=== PATIENT | male | born 1990 | race Caucasian/White ===

== ENCOUNTER 2022-08-08 09:17 | Outpatient (CLI) | payer OTHER, SELFPAY ==
--- NOTE | 2022-08-10 09:11 | SLEEP ---
Paper documentation exists on this patient due to [email or web address] System downtime on 08/09/22 from to [[id number]] .
--- NOTE | 2022-08-15 17:41 | WPDHOMESLEEP ---
Sleep Study - Home Unattended Date of Study: 08/08/22 Ordering Provider: Al Mike APRN Interpreting Provider: Stefani Kay, DO Home Sleep Study Type: Watch PAT Height: 1.78 m Weight: 158.757 kg Body Mass Index: 50.2 Neck Circumference (inches): 17.75 [place]: 15 Reason for Sleep Study Witnessed apneas, daytime hypersomnia Sleep History The patient is a 32-year-old male with anxiety, depression, bipolar type 1, panic disorder, insomnia and history of tobacco use that had a sleep study ordered by his primary care for evaluation of sleep apnea. 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 He denies awakening from sleep short of breath. He denies awakening at night with heartburn, belching or cough. He constantly snores and is constantly loud enough that others complain. He denies having trouble sleeping when he has a cold. He denies waking up gasping for air throughout the night. He frequently has breathing problems at night observed by himself or others. He occasionally sweats excessively at night. He denies having heart palpitations or irregular heartbeats during the night. He occasionally falls asleep during the day but never while driving. He denies cataplexy and hypnagogic / hypnopompic hallucinations. He frequently has trouble at school or work due to sleepiness. He occasionally feels unable to move while waking up or falling asleep. He denies feeling afraid of going to sleep. He denies having nightmares and denies remembering his dreams. He constantly has thoughts racing through his mind. He constantly feels sad, depressed and anxious. He rarely has muscular tension. He rarely notices parts of his body jerk. He denies kicking during the night. He occasionally has crawling and aching feelings in his legs but rarely had experiences leg pain during the night. He denies grinding his teeth during sleep and denies awakening with morning jaw pain. He is rarely bothered by pain during the day but never awakened by pain during the night. He occasionally wakes up feeling stiff in the morning. He frequently wakes up with sore or achy muscles. He frequently wakes up with pain in the neck, spine or other joints. He goes to bed at 9:30 p.m. on weekdays and 8:00 p.m. on the weekends. He is able to fall asleep immediately. He wakes up once throughout the night to urinate and is able to fall back asleep within 10 minutes. He wakes up at 5:30 a.m. on weekdays and at 4:45 a.m. on the weekends. He typically gets 8 hours of sleep per night. He does not stay in bed for long after waking up in the morning. He currently lives with his . He denies consuming any caffeinated beverages within 2 hours of bedtime. He denies engaging in physical exercise before bedtime. He will watch television before falling asleep. He will take naps in the afternoon or the evening but they are not refreshing. He drinks 1 caffeinated beverage per day. He drinks 2 alcoholic beverages per week. He quit smoking cigarettes several years ago. He denies recreational drug use. [facility] Past Medical History Medical History Anxiety Cyst removal Depression Insomnia Kidney stone Panic attacks Surgical History Surgical History History of hip surgery History of renal stent Family History Family History Mother , unknown cause of Depression Bipolar 1 disorder Sibling Depression Cancer Sleep apnea Father Hypertension Afib Social History Social History Years smoked: 7 Smoking status: Former smoker Tobacco type: e-cigarettes/vaping Additional smoking assessment comments: Smoked Cigarettes for 5 years prior to vaping for the last 7 years on/off. Alcohol intake: current Alcohol use
[2022-08-15 17:45] VITALS: BMI 50.2
== END 2022-08-10 09:15 | disposition home or self-care (01) ==
LOC: ANHCSM 09:19
PROVIDERS: PCP Nurse Practitioner Family; Visit Provider Nurse Practitioner Family
DX: G47.30 Sleep apnea, unspecified (principal); R40.0 Somnolence; G47.33 Obstructive sleep apnea (adult) (pediatric)
CPT/HCPCS: 95800

== ENCOUNTER 2024-05-26 13:05 | Outpatient (CLI) | payer OTHER, SELFPAY ==
--- OUTSIDE RECORDS SUMMARY | 2024-05-26 14:19 | XMS_ITS | Clinical Summary ---
Author Organization [facility] Address [address] [place] [address] Care Team Providers Care Regulatory Affairs Internship Name Role Phone Cyril Farley MD Primary Care Provider [phone] Allergies Active Allergy Reactions Criticality Noted Date Comments Hydrocodone-Acetaminophen Unknown 03/27/2016 Medications hydrOXYzine 50 MG capsule TAKE 1 TO 2 CAPSULES BY MOUTH THREE TIMES DAILY NEEDED 1 Active sertraline 100 MG tablet Take 200 mg by mouth daily. 1 Active traMADol 50 MG tabletIndications:A cute Pain < 7 Day Supply Indications: Acute Pain < 7 Day Supply 1-2 every 6 hours as needed for pain 20 tablet 1 Active HYDROcodone-acetami nophen 5-325 MG tablet Take 1 tablet by mouth every 6 (six) hours as needed for Pain. Active ondansetron 4 MG disintegrating tablet Take 4 mg by mouth every 8 (eight) hours as needed for Nausea. Active Active Problems Problem Noted Date Diagnosed Date Kidney stone on left side 12/18/2020 Family History Medical History Relation Comments Cancer Father Hypertension Father Relation Status Comments Father Social History Tobacco Use Types Packs/Day Years Used Date Smoking Tobacco: Former Smokeless Tobacco: Former Alcohol Use Standard Drinks/Week Comments Yes 0 (1 standard drink = 0.6 oz pur e alcohol) rarely AUDIT-C Answer Date Recorded Frequency of Alcohol Consumption Never 02/14/2019 Average Number of Drinks Not on file 019 Frequency of Binge Drinking Not on file 01/27 Sex and Gender Information Value Date Recorded Sex Assigned at Not on file Legal Sex Male 8:35 PM CDT Gender Identity Not on file Sexual Orientation Not on file Last Filed Vital Signs Vital Sign Reading Time Taken Comments Blood Pressure 170/98 12/19/2020 1:50 PM CDT Steven se notified Pulse 81 12/19/2020 1:50 PM CDT Temperature 37 C (98.6 F) 12/19/2020 1:50 PM CDT Respiratory Rate 18 12/19/2020 9:15 AM CDT Oxygen Saturation 94% 12/19/2020 1:50 PM CDT Inhaled Oxygen Concentration - - Weight 149.7 kg (330 lb) 12/18/2020 2:27 PM CDT Height 177.8 cm (5' 10 ) 12/18/2020 2:27 PM CDT Body Mass Index 47.35 12/18/2020 2:27 PM CDT Plan of Treatment Health Maintenance Due Date Last Done Comments Annual Physical 1993 Hepatitis C 2008 DTaP, Tdap and Td Vaccines (1 - Tdap) 2009 06/28/1994, 11/06/1991, 1990, Additional history exists Hepatitis B Vaccines (1 of 3 - 19+ 3-dose series) 2009 COVID-19 Vaccine (2023- season) 2023 HPV Vaccines Aged Out No longer eligi ble based on patient's age to complete this topic Meningococcal B Vaccine Aged Out No l onger eligible based on patient's age to complete this topic Meningococcal Vaccine Aged Out No taiwo isra eligible based on patient's age to complete this topic Pneumococcal Vaccine: Pediatrics (0 to 5 Years) and At-Risk Patients (6 to 64 Years) Aged Out No longer eligible based on patient's age to complete this topic RSV Immunizations Under 20 Months Aged Out No longer eligible based on patient's age to complete this topic Medical Devices Implanted Type Area Clinical Trainer Device Identifier Shelf Expiration Date Model / Serial / Lot Stent [employer] Ureteral Filaform 6 Fr X 26cm - [id number] Implanted:Qty: 1 on 12/19/2020 by Junior Arthur DO at [facility] Stent Left: Ureter [employer] 07/31/2023 [id number] / / [id number] Insurance R Care Teams Regulatory Affairs Internship Relationship Specialty Start Date End Date Cyril Farley MD [id number] [place] [phone] PCP - General FAMILY PRACTICE 02/14/19
--- OUTSIDE RECORDS SUMMARY | 2024-05-26 14:19 | XMS_ITS ---
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 Role Phone Cyril RESENDIZ MD Primary Care Provider UnavailLupe Smith Unavailable [phone] Allergies Allergen (clinical drug ingredient) Drug/Non Drug Allergy documented on EMR Reaction Allergy Type Onset Date Status buspirone Buspirone Unknown Drug Allergy 07/16/2023 Active REASON FOR VISIT 2 Month FU, MIPS diagnosis of HTN Medications Medication SIG (Take, Route, Frequency, Duration) Notes Start Date End Date Status cloNIDine HCl ER 0.1 MG 1 tablet every morning and 1 tablet at bedtime Orally see sign for 30 days increase dose 05/26/2024 Active cloNIDine HCl ER 0.1 MG 1 tablet Orally Once a day for 30 days Active LORazepam 1 MG 1/2 tablet Oral twice a day 05/03/2024 Active Lisinopril 20 MG Oral 07/16/2023 Ac tive Trintellix 20 MG 1 tablet Oral Once a day for 30 days Active LORazepam 1 MG 1/2 tablet Oral twice a day As needed 05/26/2024 Active Vraylar 1.5 MG 1 capsule Orally Once a day for 30 days decrease dose, DC 3 mg 05/26/2024 Active Social History Tobacco Use: Social History Observation Description Date Details (start date - stop date) Unknown Sex Assigned At : Social History Observation Description Sex Assigned At Male Tobacco Control (Standard) Question Answer Notes Tobacco use: Uses tobacco in other forms How long has it been since you last smoked? 1-5 years AUDIT-C (Standard) Question Answer Notes Did you have a drink contain ing alcohol in the past year? Yes How often did you have six o r more drinks on one occasion in the past year? Never (0 point) How many drinks did you have on a typical day when you were drinking in the past year? 3 or 4 drinks (1 point) How often did you have a dri nk containing alcohol in the past year? 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 Problem 443608406 Low testosterone (R79.89) Active confirmed Problem Essential hypertension (11989057) Benign essential HTN (I10) Active confirmed Vital Signs Blood pressure systolic 130 mm Hg 05/27/19 25 Blood pressure diastolic 84 mm Hg 025 Heart Rate 97 /min 05/26/2024 Height 70.00 in 05/26/2024 Weight 318 lbs 05/26/2024 BMI 45.62 kg/m2 05/26/2024 Height-cm 177.80 cm 05/26/2024 Weight-kg 144.24 kg 05/26/2024 Encounters Encounter Location Date Provider Diagnosis [facility] [address] [address] 05/26/2024 Lupe Porras Panic attacks F41.0 ; Major depressive disorder, recurrent, moderate F33.1 ; Primary insomnia F51.01 ; Generalized anxiety disorder F41.1 ; Low testosterone R79.89 ; Caffeine dependence F15.20 ; Obstructive sleep apnea (adult) (pediatric) G47.33 ; Benign essential HTN I10 and Encounter for screening for depression Z13.31 Assessments Encounter Date Diagnosis (ICD Code) Assessment Notes Treatment Notes Treatment Clinical Notes Section Notes 05/26/2024 Panic attacks (ICD-10 - F41.0) Generalized Anxiety Disorder Assessment: Patient reports persistent anxiety symptoms, describing them as still pretty bad and worse than depressive symptoms. Anxiety appears to be exacerbating depressive symptoms. Current medication regimen includes Trintellix 20mg, Vraylar 3mg, and as-needed lorazepam. Patient exhibits physical restlessness, which may be a side effect of Vraylar or a manifestation of anxiety. Lorazepam is being used on workdays, sometimes twice daily, raising concerns about potential tolerance and dependence. Plan: - Decrease Vraylar dose to 1.5 mg to assess if it's contributing to restlessness and anxiety - Increase clonidine to 0.1mg PO BID (morning and night) for better anxiety coverage - Continue Trintellix 20mg PO daily - Caution patient about lorazepam use: discuss risks of tolerance, dependence, and rebound anxiety with frequent use; continue to minimize use - Encourage non-pharmacologic al anxiety management techniques - Follow up in 6 weeks or sooner if needed Major Depressive Disorder Assessment: Patient reports mood as a little on the depressed side, but it's not been terrible. Depression appears to be secondary to anxiety symptoms. Current treatment with Trintellix 20mg and Vraylar 3mg. Patient denies suicidal ideation. Plan: - Continue Trintellix 20mg PO daily - Monitor depressive symptoms, especially as Vraylar dose is decreased - Reassess efficacy of current antidepressant regimen at follow-up Hypogonadism Assessment: Patient reports recent testosterone testing revealing low levels (27 ng/dL initially, 26 ng/dL on repeat). Plans to start testosterone replacement therapy are in progress, pending additional tests. Plan: - Await results of additional tests for testosterone replacement therapy - Monitor for initiation of testosterone treatment and any effects on mood or anxiety - Patient to keep provider updated on testosterone treatment progress Caffeine Intake Assessment: Patient reports reduced caffeine consumption from previous monster a day and double shot coffees to current 1-2 coffees per day. Intake varies based on work schedule. Plan: - Encourage continued moderation of caffeine intake - Educate on potential effects of caffeine on anxiety symptoms Obstructive Sleep Apnea Assessment: Patient confirms ongoing use of CPAP therapy for management of obstructive sleep apnea. Plan: - Continue CPAP therapy as prescribed - Monitor for any changes in sleep quality or daytime fatigue Hypertension Assessment: Stable today, currently on lisinopril 20 mg daily Plan: - Continue current management - Reinforce importance of caffeine moderation for blood pressure control - Monitor blood pressure at future visits Follow-up in 4-6 weeks to assess progress and adjust treatment plan as needed 05/26/2024 Major depressive disorder, recurrent, moderate (ICD-10 - F33.1) Generalized Anxiety Disorder Assessment: Patient reports persistent anxiety symptoms, describing them as still pretty bad and worse than depressive symptoms. Anxiety appears to be exacerbating depressive symptoms. Current medication regimen includes Trintellix 20mg, Vraylar 3mg, and as-needed lorazepam. Patient exhibits physical restlessness, which may be a side effect of Vraylar or a manifestation of anxiety. Lorazepam is being used on workdays, sometimes twice daily, raising concerns about potential tolerance and dependence. Plan: - Decrease Vraylar dose to 1.5 mg to assess if it's contributing to restlessness and anxiety - Increase clonidine to 0.1mg PO BID (morning and night) for better anxiety coverage - Continue Trintellix 20mg PO daily - Caution patient about lorazepam use: discuss risks of tolerance, dependence, and rebound anxiety with frequent use; continue to minimize use - Encourage non-pharmacologic al anxiety management techniques - Follow up in 6 weeks or sooner if needed Major Depressive Disorder Assessment: Patient reports mood as a little on the depressed side, but it's not been terrible. Depression appears to be secondary to anxiety symptoms. Current treatment with Trintellix 20mg and Vraylar 3mg. Patient denies suicidal ideation. Plan: - Continue Trintellix 20mg PO daily - Monitor depressive symptoms, especially as Vraylar dose is decreased - Reassess efficacy of current antidepressant regimen at follow-up Hypogonadism Assessment: Patient reports recent testosterone testing revealing low levels (27 ng/dL initially, 26 ng/dL on repeat). Plans to start testosterone replacement therapy are in progress, pending additional tests. Plan: - Await results of additional tests for testosterone replacement therapy - Monitor for initiation of testosterone treatment and any effects on mood or anxiety - Patient to keep provider updated on testosterone treatment progress Caffeine Intake Assessment: Patient reports reduced caffeine consumption from previous monster a day and double shot coffees to current 1-2 coffees per day. Intake varies based on work schedule. Plan: - Encourage continued moderation of caffeine intake - Educate on potential effects of caffeine on anxiety symptoms Obstructive Sleep Apnea Assessment: Patient confirms ongoing use of CPAP therapy for management of obstructive sleep apnea. Plan: - Continue CPAP therapy as prescribed - Monitor for any changes in sleep quality or daytime fatigue Hypertension Assessment: Stable today, currently on lisinopril 20 mg daily Plan: - Continue current management - Reinforce importance of caffeine moderation for blood pressure control - Monitor blood pressure at future visits Follow-up in 4-6 weeks to assess progress and adjust treatment plan as needed 05/26/2024 Primary insomnia (ICD-10 - F51.01) Generalized Anxiety Disorder Assessment: Patient reports persistent anxiety symptoms, describing them as still pretty bad and worse than depressive symptoms. Anxiety appears to be exacerbating depressive symptoms. Current medication regimen includes Trintellix 20mg, Vraylar 3mg, and as-needed lorazepam. Patient exhibits physical restlessness, which may be a side effect of Vraylar or a manifestation of anxiety. Lorazepam is being used on workdays, sometimes twice daily, raising concerns about potential tolerance and dependence. Plan: - Decrease Vraylar dose to 1.5 mg to assess if it's contributing to restlessness and anxiety - Increase clonidine to 0.1mg PO BID (morning and night) for better anxiety coverage - Continue Trintellix 20mg PO daily - Caution patient about lorazepam use: discuss risks of tolerance, dependence, and rebound anxiety with frequent use; continue to minimize use - Encourage non-pharmacologic al anxiety management techniques - Follow up in 6 weeks or sooner if needed Major Depressive Disorder Assessment: Patient reports mood as a little on the depressed side, but it's not been terrible. Depression appears to be secondary to anxiety symptoms. Current treatment with Trintellix 20mg and Vraylar 3mg. Patient denies suicidal ideation. Plan: - Continue Trintellix 20mg PO daily - Monitor depressive symptoms, especially as Vraylar dose is decreased - Reassess efficacy of current antidepressant regimen at follow-up Hypogonadism Assessment: Patient reports recent testosterone testing revealing low levels (27 ng/dL initially, 26 ng/dL on repeat). Plans to start testosterone replacement therapy are in progress, pending additional tests. Plan: - Await results of additional tests for testosterone replacement therapy - Monitor for initiation of testosterone treatment and any effects on mood or anxiety - Patient to keep provider updated on testosterone treatment progress Caffeine Intake Assessment: Patient reports reduced caffeine consumption from previous monster a day and double shot coffees to current 1-2 coffees per day. Intake varies based on work schedule. Plan: - Encourage continued moderation of caffeine intake - Educate on potential effects of caffeine on anxiety symptoms Obstructive Sleep Apnea Assessment: Patient confirms ongoing use of CPAP therapy for management of obstructive sleep apnea. Plan: - Continue CPAP therapy as prescribed - Monitor for any changes in sleep quality or daytime fatigue Hypertension Assessment: Stable today, currently on lisinopril 20 mg daily Plan: - Continue current management - Reinforce importance of caffeine moderation for blood pressure control - Monitor blood pressure at future visits Follow-up in 4-6 weeks to assess progress and adjust treatment plan as needed 05/26/2024 Generalized anxiety disorder (ICD-10 - F41.1) Generalized Anxiety Disorder Assessment: Patient reports persistent anxiety symptoms, describing them as still pretty bad and worse than depressive symptoms. Anxiety appears to be exacerbating depressive symptoms. Current medication regimen includes Trintellix 20mg, Vraylar 3mg, and as-needed lorazepam. Patient exhibits physical restlessness, which may be a side effect of Vraylar or a manifestation of anxiety. Lorazepam is being used on workdays, sometimes twice daily, raising concerns about potential tolerance and dependence. Plan: - Decrease Vraylar dose to 1.5 mg to assess if it's contributing to restlessness and anxiety - Increase clonidine to 0.1mg PO BID (morning and night) for better anxiety coverage - Continue Trintellix 20mg PO daily - Caution patient about lorazepam use: discuss risks of tolerance, dependence, and rebound anxiety with frequent use; continue to minimize use - Encourage non-pharmacologic al anxiety management techniques - Follow up in 6 weeks or sooner if needed Major Depressive Disorder Assessment: Patient reports mood as a little on the depressed side, but it's not been terrible. Depression appears to be secondary to anxiety symptoms. Current treatment with Trintellix 20mg and Vraylar 3mg. Patient denies suicidal ideation. Plan: - Continue Trintellix 20mg PO daily - Monitor depressive symptoms, especially as Vraylar dose is decreased - Reassess efficacy of current antidepressant regimen at follow-up Hypogonadism Assessment: Patient reports recent testosterone testing revealing low levels (27 ng/dL initially, 26 ng/dL on repeat). Plans to start testosterone replacement therapy are in progress, pending additional tests. Plan: - Await results of additional tests for testosterone replacement therapy - Monitor for initiation of testosterone treatment and any effects on mood or anxiety - Patient to keep provider updated on testosterone treatment progress Caffeine Intake Assessment: Patient reports reduced caffeine consumption from previous monster a day and double shot coffees to current 1-2 coffees per day. Intake varies based on work schedule. Plan: - Encourage continued moderation of caffeine intake - Educate on potential effects of caffeine on anxiety symptoms Obstructive Sleep Apnea Assessment: Patient confirms ongoing use of CPAP therapy for management of obstructive sleep apnea. Plan: - Continue CPAP therapy as prescribed - Monitor for any changes in sleep quality or daytime fatigue Hypertension Assessment: Stable today, currently on lisinopril 20 mg daily Plan: - Continue current management - Reinforce importance of caffeine moderation for blood pressure control - Monitor blood pressure at future visits Follow-up in 4-6 weeks to assess progress and adjust treatment plan as needed 05/26/2024 Low testosterone (ICD-10 - R79.89) Generalized Anxiety Disorder Assessment: Patient reports persistent anxiety symptoms, describing them as still pretty bad and worse than depressive symptoms. Anxiety appears to be exacerbating depressive symptoms. Current medication regimen includes Trintellix 20mg, Vraylar 3mg, and as-needed lorazepam. Patient exhibits physical restlessness, which may be a side effect of Vraylar or a manifestation of anxiety. Lorazepam is being used on workdays, sometimes twice daily, raising concerns about potential tolerance and dependence. Plan: - Decrease Vraylar dose to 1.5 mg to assess if it's contributing to restlessness and anxiety - Increase clonidine to 0.1mg PO BID (morning and night) for better anxiety coverage - Continue Trintellix 20mg PO daily - Caution patient about lorazepam use: discuss risks of tolerance, dependence, and rebound anxiety with frequent use; continue to minimize use - Encourage non-pharmacologic al anxiety management techniques - Follow up in 6 weeks or sooner if needed Major Depressive Disorder Assessment: Patient reports mood as a little on the depressed side, but it's not been terrible. Depression appears to be secondary to anxiety symptoms. Current treatment with Trintellix 20mg and Vraylar 3mg. Patient denies suicidal ideation. Plan: - Continue Trintellix 20mg PO daily - Monitor depressive symptoms, especially as Vraylar dose is decreased - Reassess efficacy of current antidepressant regimen at follow-up Hypogonadism Assessment: Patient reports recent testosterone testing revealing low levels (27 ng/dL initially, 26 ng/dL on repeat). Plans to start testosterone replacement therapy are in progress, pending additional tests. Plan: - Await results of additional tests for testosterone replacement therapy - Monitor for initiation of testosterone treatment and any effects on mood or anxiety - Patient to keep provider updated on testosterone treatment progress Caffeine Intake Assessment: Patient reports reduced caffeine consumption from previous monster a day and double shot coffees to current 1-2 coffees per day. Intake varies based on work schedule. Plan: - Encourage continued moderation of caffeine intake - Educate on potential effects of caffeine on anxiety symptoms Obstructive Sleep Apnea Assessment: Patient confirms ongoing use of CPAP therapy for management of obstructive sleep apnea. Plan: - Continue CPAP therapy as prescribed - Monitor for any changes in sleep quality or daytime fatigue Hypertension Assessment: Stable today, currently on lisinopril 20 mg daily Plan: - Continue current management - Reinforce importance of caffeine moderation for blood pressure control - Monitor blood pressure at future visits Follow-up in 4-6 weeks to assess progress and adjust treatment plan as needed 05/26/2024 Caffeine dependence (ICD-10 - F15.20) Generalized Anxiety Disorder Assessment: Patient reports persistent anxiety symptoms, describing them as still pretty bad and worse than depressive symptoms. Anxiety appears to be exacerbating depressive symptoms. Current medication regimen includes Trintellix 20mg, Vraylar 3mg, and as-needed lorazepam. Patient exhibits physical restlessness, which may be a side effect of Vraylar or a manifestation of anxiety. Lorazepam is being used on workdays, sometimes twice daily, raising concerns about potential tolerance and dependence. Plan: - Decrease Vraylar dose to 1.5 mg to assess if it's contributing to restlessness and anxiety - Increase clonidine to 0.1mg PO BID (morning and night) for better anxiety coverage - Continue Trintellix 20mg PO daily - Caution patient about lorazepam use: discuss risks of tolerance, dependence, and rebound anxiety with frequent use; continue to minimize use - Encourage non-pharmacologic al anxiety management techniques - Follow up in 6 weeks or sooner if needed Major Depressive Disorder Assessment: Patient reports mood as a little on the depressed side, but it's not been terrible. Depression appears to be secondary to anxiety symptoms. Current treatment with Trintellix 20mg and Vraylar 3mg. Patient denies suicidal ideation. Plan: - Continue Trintellix 20mg PO daily - Monitor depressive symptoms, especially as Vraylar dose is decreased - Reassess efficacy of current antidepressant regimen at follow-up Hypogonadism Assessment: Patient reports recent testosterone testing revealing low levels (27 ng/dL initially, 26 ng/dL on repeat). Plans to start testosterone replacement therapy are in progress, pending additional tests. Plan: - Await results of additional tests for testosterone replacement therapy - Monitor for initiation of testosterone treatment and any effects on mood or anxiety - Patient to keep provider updated on testosterone treatment progress Caffeine Intake Assessment: Patient reports reduced caffeine consumption from previous monster a day and double shot coffees to current 1-2 coffees per day. Intake varies based on work schedule. Plan: - Encourage continued moderation of caffeine intake - Educate on potential effects of caffeine on anxiety symptoms Obstructive Sleep Apnea Assessment: Patient confirms ongoing use of CPAP therapy for management of obstructive sleep apnea. Plan: - Continue CPAP therapy as prescribed - Monitor for any changes in sleep quality or daytime fatigue Hypertension Assessment: Stable today, currently on lisinopril 20 mg daily Plan: - Continue current management - Reinforce importance of caffeine moderation for blood pressure control - Monitor blood pressure at future visits Follow-up in 4-6 weeks to assess progress and adjust treatment plan as needed 05/26/2024 Obstructive sleep apnea (adult) (pediatric) (ICD-10 - G47.33) Generalized Anxiety Disorder Assessment: Patient reports persistent anxiety symptoms, describing them as still pretty bad and worse than depressive symptoms. Anxiety appears to be exacerbating depressive symptoms. Current medication regimen includes Trintellix 20mg, Vraylar 3mg, and as-needed lorazepam. Patient exhibits physical restlessness, which may be a side effect of Vraylar or a manifestation of anxiety. Lorazepam is being used on workdays, sometimes twice daily, raising concerns about potential tolerance and dependence. Plan: - Decrease Vraylar dose to 1.5 mg to assess if it's contributing to restlessness and anxiety - Increase clonidine to 0.1mg PO BID (morning and night) for better anxiety coverage - Continue Trintellix 20mg PO daily - Caution patient about lorazepam use: discuss risks of tolerance, dependence, and rebound anxiety with frequent use; continue to minimize use - Encourage non-pharmacologic al anxiety management techniques - Follow up in 6 weeks or sooner if needed Major Depressive Disorder Assessment: Patient reports mood as a little on the depressed side, but it's not been terrible. Depression appears to be secondary to anxiety symptoms. Current treatment with Trintellix 20mg and Vraylar 3mg. Patient denies suicidal ideation. Plan: - Continue Trintellix 20mg PO daily - Monitor depressive symptoms, especially as Vraylar dose is decreased - Reassess efficacy of current antidepressant regimen at follow-up Hypogonadism Assessment: Patient reports recent testosterone testing revealing low levels (27 ng/dL initially, 26 ng/dL on repeat). Plans to start testosterone replacement therapy are in progress, pending additional tests. Plan: - Await results of additional tests for testosterone replacement therapy - Monitor for initiation of testosterone treatment and any effects on mood or anxiety - Patient to keep provider updated on testosterone treatment progress Caffeine Intake Assessment: Patient reports reduced caffeine consumption from previous monster a day and double shot coffees to current 1-2 coffees per day. Intake varies based on work schedule. Plan: - Encourage continued moderation of caffeine intake - Educate on potential effects of caffeine on anxiety symptoms Obstructive Sleep Apnea Assessment: Patient confirms ongoing use of CPAP therapy for management of obstructive sleep apnea. Plan: - Continue CPAP therapy as prescribed - Monitor for any changes in sleep quality or daytime fatigue Hypertension Assessment: Stable today, currently on lisinopril 20 mg daily Plan: - Continue current management - Reinforce importance of caffeine moderation for blood pressure control - Monitor blood pressure at future visits Follow-up in 4-6 weeks to assess progress and adjust treatment plan as needed 05/26/2024 Benign essential HTN (ICD-10 - I10) Generalized Anxiety Disorder Assessment: Patient reports persistent anxiety symptoms, describing them as still pretty bad and worse than depressive symptoms. Anxiety appears to be exacerbating depressive symptoms. Current medication regimen includes Trintellix 20mg, Vraylar 3mg, and as-needed lorazepam. Patient exhibits physical restlessness, which may be a side effect of Vraylar or a manifestation of anxiety. Lorazepam is being used on workdays, sometimes twice daily, raising concerns about potential tolerance and dependence. Plan: - Decrease Vraylar dose to 1.5 mg to assess if it's contributing to restlessness and anxiety - Increase clonidine to 0.1mg PO BID (morning and night) for better anxiety coverage - Continue Trintellix 20mg PO daily - Caution patient about lorazepam use: discuss risks of tolerance, dependence, and rebound anxiety with frequent use; continue to minimize use - Encourage non-pharmacologic al anxiety management techniques - Follow up in 6 weeks or sooner if needed Major Depressive Disorder Assessment: Patient reports mood as a little on the depressed side, but it's not been terrible. Depression appears to be secondary to anxiety symptoms. Current treatment with Trintellix 20mg and Vraylar 3mg. Patient denies suicidal ideation. Plan: - Continue Trintellix 20mg PO daily - Monitor depressive symptoms, especially as Vraylar dose is decreased - Reassess efficacy of current antidepressant regimen at follow-up Hypogonadism Assessment: Patient reports recent testosterone testing revealing low levels (27 ng/dL initially, 26 ng/dL on repeat). Plans to start testosterone replacement therapy are in progress, pending additional tests. Plan: - Await results of additional tests for testosterone replacement therapy - Monitor for initiation of testosterone treatment and any effects on mood or anxiety - Patient to keep provider updated on testosterone treatment progress Caffeine Intake Assessment: Patient reports reduced caffeine consumption from previous monster a day and double shot coffees to current 1-2 coffees per day. Intake varies based on work schedule. Plan: - Encourage continued moderation of caffeine intake - Educate on potential effects of caffeine on anxiety symptoms Obstructive Sleep Apnea Assessment: Patient confirms ongoing use of CPAP therapy for management of obstructive sleep apnea. Plan: - Continue CPAP therapy as prescribed - Monitor for any changes in sleep quality or daytime fatigue Hypertension Assessment: Stable today, currently on lisinopril 20 mg daily Plan: - Continue current management - Reinforce importance of caffeine moderation for blood pressure control - Monitor blood pressure at future visits Follow-up in 4-6 weeks to assess progress and adjust treatment plan as needed 05/26/2024 Encounter for screening for depression (ICD-10 - Z13.31) Generalized Anxiety Disorder Assessment: Patient reports persistent anxiety symptoms, describing them as still pretty bad and worse than depressive symptoms. Anxiety appears to be exacerbating depressive symptoms. Current medication regimen includes Trintellix 20mg, Vraylar 3mg, and as-needed lorazepam. Patient exhibits physical restlessness, which may be a side effect of Vraylar or a manifestation of anxiety. Lorazepam is being used on workdays, sometimes twice daily, raising concerns about potential tolerance and dependence. Plan: - Decrease Vraylar dose to 1.5 mg to assess if it's contributing to restlessness and anxiety - Increase clonidine to 0.1mg PO BID (morning and night) for better anxiety coverage - Continue Trintellix 20mg PO daily - Caution patient about lorazepam use: discuss risks of tolerance, dependence, and rebound anxiety with frequent use; continue to minimize use - Encourage non-pharmacologic al anxiety management techniques - Follow up in 6 weeks or sooner if needed Major Depressive Disorder Assessment: Patient reports mood as a little on the depressed side, but it's not been terrible. Depression appears to be secondary to anxiety symptoms. Current treatment with Trintellix 20mg and Vraylar 3mg. Patient denies suicidal ideation. Plan: - Continue Trintellix 20mg PO daily - Monitor depressive symptoms, especially as Vraylar dose is decreased - Reassess efficacy of current antidepressant regimen at follow-up Hypogonadism Assessment: Patient reports recent testosterone testing revealing low levels (27 ng/dL initially, 26 ng/dL on repeat). Plans to start testosterone replacement therapy are in progress, pending additional tests. Plan: - Await results of additional tests for testosterone replacement therapy - Monitor for initiation of testosterone treatment and any effects on mood or anxiety - Patient to keep provider updated on testosterone treatment progress Caffeine Intake Assessment: Patient reports reduced caffeine consumption from previous monster a day and double shot coffees to current 1-2 coffees per day. Intake varies based on work schedule. Plan: - Encourage continued moderation of caffeine intake - Educate on potential effects of caffeine on anxiety symptoms Obstructive Sleep Apnea Assessment: Patient confirms ongoing use of CPAP therapy for management of obstructive sleep apnea. Plan: - Continue CPAP therapy as prescribed - Monitor for any changes in sleep quality or daytime fatigue Hypertension Assessment: Stable today, currently on lisinopril 20 mg daily Plan: - Continue current management - Reinforce importance of caffeine moderation for blood pressure control - Monitor blood pressure at future visits Follow-up in 4-6 weeks to assess progress and adjust treatment plan as needed Plan Of Treatment Medication Medication Name Sig Start Date Stop Date Notes Vraylar 3 mg 1 capsule Oral daily cloNIDine HCl ER 0.1 MG 1 tablet every morning and 1 tablet at bedtime Orally see sign for 30 days 05/26/2024 increase dose cloNIDine HCl ER 0.1 MG 1 tablet every morning and 1 tablet at bedtime Orally see sign 05/26/2024 Trintellix 20 MG 1 tablet Oral Once a day for 30 days LORazepam 1 MG 1/2 tablet Oral twice a day 05/26/2024 Vraylar 1.5 MG 1 capsule Orally Once a day for 30 days 05/26/2024 decrease dose, DC 3 mg Next Appt Details Follow Up: 4 Weeks, Reason: Provider Name:Lupe brown, 06/23/2024 09:00:00 AM, [address], [address], [place], [address], Progress Notes * MELISSA BERMUDEZ ADOB: (34 yo M)Acc No.[id number]:05/26/2024 Patient: MELISSA MIGUEL Provider: Dl Porras :1990 A ge:34 Y S ex:Male Date:05/26/2024 Address:[facility] [address] Pcp:Cyril RESENDIZ MD Subjective: * Chief Complaints: * 2 Month FUMIPS diagnosis of HTN * HPI: D epression Screening: OSCAR-7 (2018 Edition) F eeling nervous, anxious, or on edge M ore than half the days N ot being able to stop or control worrying?More than half the days W orrying too much about different things M ore than hafl the days T rouble relaxing M ore than half the days B eing so restless that it is hard to sit still N early every day B ecoming easily annoyed or irritable S everal days F eeling afraid as if something awful might happen N early every day T otal OSCAR-7 Score 1 5 I f you checked any problems, how difficult have they made it for you to do your work, take care of things at home, or get along with other people? V susanna difficult I nterpretation of Total ( 15 and over) Severe C [place]-Suicide Severity Rating Scale: Suicide Risk (CSRS-screener) i n the past one month Have you wished you were or wished you could go to sleep and not wake up? N o i n the past one month Have you actually had any thoughts of killing yourself? N o H ave you ever done anything, started to do anything, or prepared to do anything to end your life? N o D epression screening: PHQ-9 L ittle interest or pleasure in doing things?Several days F eeling down, depressed, or hopeless S everal days T rouble falling or staying asleep, or sleeping too much S everal days F eeling tired or having little energy N early every day P oor appetite or overeating S everal days F eeling bad about yourself or that you are a failure, or have let yourself or your family down S everal days T rouble concentrating on things, such as reading the newspaper or watching television M ore than half the days M oving or speaking so slowly that other people could have noticed; or the opposite, being so fidgety or restless that you have been moving around a lot more than usual N early every day T houghts that you would be better off or of hurting yourself in some way N ot at all T otal Score 1 3 I nterpretation M oderate Depression Intervention D epression Screening Findings P ositve F ollow-Up for Depression M entnv health treatment assessment, Patient follow-up to return when and if necessary S uicide Risk Assessment Performed 0 05/26/2024 A dditional Evaluation for Depression P sychiatric interview and evaluation N idris of the standardized tool used for adult depression screening: P atient Health Questionnaire (PHQ-9) H istory of Presenting Problem: 34 y/o male, , 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 This note is transcribed using speech recognition software. It is a reflection of a visit with the patient. It might have some inaccuracy, including medication names and transcribing errors, though efforts have been made to correct them. Presents with ongoing anxiety and depression. He reports that his anxiety remains pretty bad and has been worse than his depressive symptoms. The patient describes his mood as a little on the depressed side, but it's not been terrible. He believes that his anxiety, when exacerbated, contributes to his depressive symptoms. Denies suicidal ideations. Sleep is reported as okay. The patient continues to use his CPAP machine as prescribed. Reports fatigue most days. Regarding caffeine intake, he has reduced his consumption from a monster a day to one or 2 coffees a day, typically having one cup from [employer] when working his main job and two [employer] coffees when working his part-time job. The patient reports experiencing restlessness, describing it as always hyped up. He notes that he fidgets a lot, seen bouncing on his feet. Currently taking Trintellix and Vraylar 3 mg for his psychiatric symptoms. He uses lorazepam for severe anxiety, often at work, once or sometimes twice on workdays, but not daily. Reports that recent testosterone tests showed low levels (27 and 26 in two separate tests). He is about to start testosterone treatment and is scheduled for additional tests. Expresses desire to change jobs due to work-related stress but feels constrained by current high salary. Attends therapy with Jeaneth Escoto at [place]. P ast Psychiatric Medications: lithium- vomiting; propanolol-ineffective;buspirone- abdominal pain; depakote, latuda, sertraline, zoloft, effexor, wellbutrin, seroquel, lexapro- helpful first few months then stopped being effective. * ROS: G eneral / Constitutional: Patient denies f atigue, headache, l ightheadedness.? C ardiovascular: Patient denies c hest pain, dizziness, palpitations. ? G astrointestinal: Patient denies n ausea, vomiting, change in bowel habits.? N eurologic: Patient denies c onfusion, tic, tremor. P sychiatric: Patient denies s uicidal thoughts, auditory / visual hallucinations, delusions, psychosis, involuntary movements. P erformance Met: N ormal blood pressure reading documented, follow-up not required ( G8783)Patient not eligible due to active diagnosis of hypertension: Aurelia 9744See HPIPatient not eligible due to active diagnosis of hypertension: Aurelia 9744. * Medical History: * Surgical History: O ther 3 hip surgeries Tonsilectomy/adenoids * Hospitalization/Major Diagno stic Procedure: d enied psych hospitalization hx * Family History: M other: Bipolar Disorder. S ister: Major Depressive Episode. * Social History: T obacco Use: T obacco Control (Standard) T obacco use: U ses tobacco in other forms H ow long has it been since you last smoked??1-5 years D rug/Alcohol: D rugs H ave you used drugs other than those for medical reasons in the past 12 months? N o AUDIT-C (Standard) D id you have a drink containing alcohol in the past year? Y es H ow often did you have six or more drinks on one occasion in the past year? N ever (0 point) H ow many drinks did you have on a typical day when you were drinking in the past year? 3 or 4 drinks (1 point) H ow often did you have a drink containing alcohol in the past year? M onthly or less (1 point) P oints 3 I nterpretation N egative M iscellaneous: S afety issues A re there any firearms in the house? 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 N o A re you your own decision-maker Y es S ocial History: H ousehold M arital Status: M arried N umber of Adults in household: 2 N umber of Children in Household: 0 L evel of Education: [employer] in[employer] * Medications: T akingLisinopril 20 MG Tablet Oral Vraylar 3 mg Capsule 1 capsule Oral daily cloNIDine HCl ER 0.1 MG Tablet Extended Release 12 Hour 1 tablet Orally Once a day Trintellix 20 MG Tablet 1 tablet Oral Once a day LORazepam 1 MG Tablet 1/2 tablet Oral twice a day Medication List reviewed and reconciled with the patientTaking Lisinopril 20 MG Tablet Oral Taking Vraylar 3 mg Capsule 1 capsule Oral daily Taking cloNIDine HCl ER 0.1 MG Tablet Extended Release 12 Hour 1 tablet Orally Once a day Taking Trintellix 20 MG Tablet 1 tablet Oral Once a day Taking LORazepam 1 MG Tablet 1/2 tablet Oral twice a day Medication List reviewed and reconciled with the patient * Allergies: B uspirone: Allergy - Onset Date 07/16/2023no[Allergies Verified] Objective: * Vitals: B P:130/84mm Hg, HR:97/min, Wt:318lbs, Wt-k.24 kg, Ht: 70.00 in, Ht-cm: 177.80 cm, BMI:45.62Index, Body Surface Area: 2.67. * Examination: P sychiatry: Appearance: w ell-groomed, well-nourished. Abnormal body movements: b ouncing leg, fidgety. Affect / mood: a nxious. Attention: n ormal in conversation. Attitude: c ooperative. Homicidal ideation: n one. Suicidal ideation: n one. Memory status: n o impairment noted. Degree of awareness of surroundings: w ithin normal limits.? Delusions: n o. Hallucinations: n o. Insight: g ood. Intellectual functioning: n o impairment noted. Judgement: g ood. Orientation: a wake, alert and oriented x 3. Psychomotor activity: w ithin normal range. Speech / language: c lear and coherent, appropriate pitch/modulation, normal rate, volume, and articulation (RVR), proper grammar used. Thought content: a ppropriate. Thought process: i ntact. Assessment: * Assessment: 1. G eneralized anxiety disorder - F41.1 (Primary) 2 . P anic attacks - F41.0 3 . M ajor depressive disorder, recurrent, moderate - F33.1 4 . P rimary insomnia - F51.01 5 . L ow testosterone - R79.89 6. C affeine dependence - F15.20 7 . O bstructive sleep apnea (adult) (pediatric) - G47.33 8 . B enign essential HTN - I10 9 . E ncounter for screening for depression - Z13.31 Generalized Anxiety Disorder Assessment: Patient reports persistent anxiety symptoms, describing them as still pretty bad and worse than depressive symptoms. Anxiety appears to be exacerbating depressive symptoms. Current medication regimen includes Trintellix 20mg, Vraylar 3mg, and as-needed lorazepam. Patient exhibits physical restlessness, which may be a side effect of Vraylar or a manifestation of anxiety. Lorazepam is being used on workdays, sometimes twice daily, raising concerns about potential tolerance and dependence. Plan: - Decrease Vraylar dose to 1.5 mg to assess if it's contributing to restlessness and anxiety - Increase clonidine to 0.1mg PO BID (morning and night) for better anxiety coverage - Continue Trintellix 20mg PO daily - Caution patient about lorazepam use: discuss risks of tolerance, dependence, and rebound anxiety with frequent use; continue to minimize use - Encourage non-pharmacological anxiety management techniques - Follow up in 6 weeks or sooner if needed Major Depressive Disorder Assessment: Patient reports mood as a little on the depressed side, but it's not been terrible. Depression appears to be secondary to anxiety symptoms. Current treatment with Trintellix 20mg and Vraylar 3mg. Patient denies suicidal ideation. Plan: - Continue Trintellix 20mg PO daily - Monitor depressive symptoms, especially as Vraylar dose is decreased - Reassess efficacy of current antidepressant regimen at follow-up Hypogonadism Assessment: Patient reports recent testosterone testing revealing low levels (27 ng/dL initially, 26 ng/dL on repeat). Plans to start testosterone replacement therapy are in progress, pending additional tests. Plan: - Await results of additional tests for testosterone replacement therapy - Monitor for initiation of testosterone treatment and any effects on mood or anxiety - Patient to keep provider updated on testosterone treatment progress Caffeine Intake Assessment: Patient reports reduced caffeine consumption from previous monster a day and double shot coffees to current 1-2 coffees per day. Intake varies based on work schedule. Plan: - Encourage continued moderation of caffeine intake - Educate on potential effects of caffeine on anxiety symptoms Obstructive Sleep Apnea Assessment: Patient confirms ongoing use of CPAP therapy for management of obstructive sleep apnea. Plan: - Continue CPAP therapy as prescribed - Monitor for any changes in sleep quality or daytime fatigue Hypertension Assessment: Stable today, currently on lisinopril 20 mg daily Plan: - Continue current management - Reinforce importance of caffeine moderation for blood pressure control - Monitor blood pressure at future visits Follow-up in 4-6 weeks to assess progress and adjust treatment plan as needed Plan: * Treatment: 2. P anic attacks Refill LORazepam Tablet, 1 MG, 1/2 tablet, Oral, twice a day As needed, 14, Refills 0. 3. M ajor depressive disorder, recurrent, moderate Refill Trintellix Tablet, 20 MG, 1 tablet, Oral, Once a day, 30 days, 30, Refills 1; S top Vraylar Capsule, 3 mg, 1 capsule, Oral, daily; S tart Vraylar Capsule, 1.5 MG, 1 capsule, Orally, Once a day, 30 days, 30 Capsule, Refills 1, Notes to Pharmacist: decrease dose, DC 3 mg. * Procedure Codes: 9 6127 BEHAV ASSMT W/SCORE & DOCD/STAND [id number] Pt not yoselyn d/t act dig [id number] CLIN DEPRESSION SCREEN [id number] VISIT COMPLEXITY INHERENT TO ONGOING CARE RELATED TO A PATIENT'S SINGLE, SERIOUS CONDITION OR A COMPLEX CONDITION * Preventive Medicine: A ssessment and plan reviewed with patient. Educated on diagnoses and recommended treatment options. Educated on risks/benefits of medications, including reason for medications and potential side effects. Alternatives and expected course without treatment reviewed. Education given regarding compliance with medication and expectations regarding adherence to or inconsistent usage of medication. Educated that it can take weeks to see full therapeutic benefits of psychotropic medications and encouraged to trust the process. Educated on good sleep hygiene and importance of adequate sleep on both mental and overall health and well-being. Patient asked appropriate questions, verbalized understanding, and agreed to the recommended treatment and to continue to be followed. Encouraged to reach out if problems, questions, or concerns arise. Educated on suicide hotlines, resources, and safety should suicidal thoughts occur. * Follow Up: 4 Weeks * Billing Information: * Visit Code: 98828 OFFICE OUTPATIENT VISIT 25 MINUTES DETAILED HISTORY AND EXAM/MODERATE MEDICAL DECISION MAKING. * Procedure Codes: 25659 BEHAV ASSMT W/SCORE & DOCD/STAND INSTRUMENT. G9744 Pt not yoselyn d/t act dig htn. G8431 CLIN DEPRESSION SCREEN DOC. G2211 VISIT COMPLEXITY INHERENT TO ONGOING CARE RELATED TO A PATIENT'S SINGLE, SERIOUS CONDITION OR A COMPLEX CONDITION. * Sign off status: Completed true * Provider: Dl Porras Date: 05/26/2024 Generated for Philippe watkins/Saroj/Charletteitting on: 05/26/2024 02:19 PM CDT History and Physical Notes * HPI (History of Present Illness) Category Sub-Category Detail Notes Category Not es Depression screening PHQ-9 Little inte rest or pleasure in doing things: Several days Feeling down, depressed, or hopeless: Se veral days Trouble falling or staying asleep, or sl eeping too much: Several days Feeling tired or having little energy: N early every day Poor appetite or overeating: Several day s Feeling bad about yourself o r that you are a failure, or have let yourself or your family down: Several days Trouble concentrating on thi ngs, such as reading the newspaper or watching television: More than half the days Moving or speaking so slowly that other people could have noticed; or the opposite, being so fidgety or restless that you have been moving around a lot more than usual: Nearly every day Thoughts that you would be b rosi off or of hurting yourself in some way: Not at all Total Score: 13 Interpretation: Moderate Depression Intervention Depression Screening Findings: P ositve Follow-Up for Depression: [facility] treatment assessment, Patient follow-up to return when and if necessary Suicide Risk Assessment Performed: 05/26 Additional Evaluation for Depression: Ps ychiatric interview and evaluation Name of the standardized too l used for adult depression screening:: Patient Health Questionnaire (PHQ-9) Depression Screening OSCAR-7 (2018 Edition) Feelin g nervous, anxious, or on edge: More than half the days Not being able to stop or control worryi ng: More than half the days Worrying too much about different things : More than hafl the days Trouble relaxing: More than half the day s Being so restless that it is hard to sit still: Nearly every day Becoming easily annoyed or irritable: Se ver days Feeling afraid as if something awful lupe ht happen: Nearly every day Total OSCAR-7 Score: 15 If you checked any problems, how difficult have they made it for you to do your work, take care of things at home, or get along with other people?: Very difficult Interpretation of Total: (15 and over) S srinivas Burke-Suicide Severity Rating Scale Suicide Risk (CSRS-screener) in the past one month Have you wished you were or wished you could go to sleep and not wake up?: No in the past one month Have y ou actually had any thoughts of killing yourself?: No Have you ever done anything, started to do anything, or prepared to do anything to end your life?: No Examination Category Sub-Category Detail Notes Category Not es Psychiatry Appearance: well-groomed, well-nourished Attitude: cooperative Psychomotor activity: within normal rang e Abnormal body movements: bouncing leg, f idgety Attention: normal in conversati on Degree of awareness of surroundings: wit hin normal limits Orientation: awake, alert and alfredo ented x 3 Affect / mood: anxious Speech / language: clear and coherent, appropriate pitch/modulation, normal rate, volume, and articulation (RVR), proper grammar used Insight: good Judgement: good Thought process: intact Thought content: appropriate Suicidal ideation: none Homicidal ideation: none Intellectual functioning: no impairment noted Memory status: no impairment noted Delusions: no Hallucinations: no
--- OUTSIDE RECORDS SUMMARY | 2024-05-26 14:19 | XMS_ITS | Encounter Summary ---
Author Organization [facility] Address [address] [place] [address] Care Team Providers Care Instructor Traffic Safety Name Role Phone Cyril Farley MD Primary Care Provider [phone] Encounter Details Date Type Department Care Team (Late st Contact Info) Description 12/20/2020 Hospital Follow-up Call [facility] [address] [place] [address] Diana Victoria RN Social History Tobacco Use Types Packs/Day Years [...] on file Sexual Orientation Not on file COVID-19 Exposure Response Date Recorded In the last month, have you been in contact with someone who was confirmed or suspected to have Coronavirus / COVID-19? No / Unsure 12/18/2020 2:23 PM CDT documented as of this encounter Functional Status * RETIRED Are you deaf or do you have serious difficulty hearing Answer Date of Assessment Author Status No 12/19/2020 9:20 AM CDT Activ e * RETIRED Are you blind or do you have serious difficulty seeing, even when wearing glasses? Answer Date of Assessment Author Status No 12/19/2020 9:20 AM CDT Activ e * Do you have serious difficulty walking or climbing stairs? Answer Date of Assessment Author Status No 12/19/2020 9:20 AM Randee Conteh RN Ac tive * Do you have difficulty dressing or bathing? Answer Date of Assessment Author Status No 12/19/2020 9:20 AM Randee Conteh RN Ac tive * Because of a physical, mental, or emotional condition, do you have difficulty doing errands alone such as visiting a doctor's office or shopping? Answer Date of Assessment Author Status No 12/19/2020 9:20 AM Randee Conteh RN Ac tive documented as of this encounter Mental Status * Because of a physical, mental, or emotional condition, do you have serious difficulty concentrating, remembering, or making decisions? Answer Entry Date Author Status No 12/19/2020 9:20 AM Randee Conteh RN Ac tive documented in this encounter Plan of Treatment Not on file documented as of this encounter Visit Diagnoses Not on filedocumented in this encounter Care Teams Instructor Traffic Safety Relationship Specialty Start Date End Date Cyril Farley MD [address] [place] [address] PCP - General FAMILY PRACTICE 02/14/19 documented as of this encounter
--- OUTSIDE RECORDS SUMMARY | 2024-05-26 14:20 | XMS_ITS | Encounter Summary ---
Author Organization [facility] Address [address] [place] [address] Care Team Providers Care Enrollment Counselor Name Role Phone Cyril Farley MD Primary Care Provider [phone] Encounter Details Date Type Department Care Team (Late st Contact Info) Description 08/03/2018 Abstract [facility] CONVERSION [address] [place] [address] , Generic Conversion, Social History Tobacco Use Types Packs/Day Years Used Date Smoking Tobacco: Never Assessed Sex and Gender Information Value Date Recorded Sex Assigned at Not on file Legal Sex Male 8:35 PM CDT Gender Identity Not on file Sexual Orientation Not on file documented as of this encounter Plan of Treatment Not on file documented as of this encounter Visit Diagnoses Not on filedocumented in this encounter Additional Health Concerns Infection Onset Date Last Indicated Resolved Time COVID-19 Rule Out 12/18/2020 12/19/2020 12/19/2020 6:25 AM CDT documented as of this encounter Care Teams Enrollment Counselor Relationship Specialty Start Date End Date Cyril Farley MD [address] [place] [id number] PCP - General FAMILY PRACTICE 02/14/19 documented as of this encounter
--- OUTSIDE RECORDS SUMMARY | 2024-05-26 14:20 | XMS_ITS ---
Author Organization [facility] Address [address] [facility] [address] [place] [address] Care Team Providers Care Pocket Closer Name Role Phone MARTÍN GIFFORD, Cyril Primary Care Provider Unavailab Lupe Canales Unavailable [phone] Allergies Allergen (clinical drug ingredient) Drug/Non Drug Allergy documented on EMR Reaction Allergy Type Onset Date Status buspirone Buspirone Unknown Drug Allergy 07/16/2023 Active Results Component Value Reference Range Notes UDT Reviewed date:03/04/2024 11:28:45 AM Interpretation: Performing Lab: Notes/Report: THC N 0 - 50 ng/ml Cocaine N 0 - 300 ng/ml Amphetamine N 0 - 1000 ng/ml Buprenorphine (BUP) N 0 - 10 ng/ml Secobarbital (Bar) N 0 - 300 ng/ml Oxazepam (BZO) N 0 - 300 ng/ml 0-uizjbczqye-7,2-jhvgymnm-6,3-diphenylpyrrolidine (LEANDRO P) N 0 - 300 ng/ml Methamphetamine (MET) N 0 - 1000 ng/ml Methylenedioxymethamphetamine (MDMA) N 0 - 500 ng/ml Morphine (MOP 300/[id number]) N 0 - 300 ng/ml Methadone (MTD) N 0 - 300 ng/ml Phencyclidine (PCP) N 0 - 25 ng/ml Nortriptyline (TCA) N 0 - 1000 ng/ml Oxycodone N 0 - 300 ng/ml x N 0 - 300 ng/ml REASON FOR VISIT Follow-up for medication management Medications Medication SIG (Take, Route, Frequency, Duration) Notes Start Date End Date Status Lisinopril 20 MG Oral 07/16/2023 Ac tive cloNIDine HCl ER 0.1 MG 1 tablet Orally Once a day for 30 days if taken in the AM not on a day you work at first, if too sedating take at bedtime 03/04/2024 Active LORazepam 1 MG 1/2 tablet Oral twice a day As needed dc any existing orders from aryan Mahoney provider. thanks 03/04/2024 Active Vraylar 3 mg 1 capsule Oral daily for 30 days Active Trintellix 20 MG 1 tablet Oral Once a day Active Social History Tobacco Use: Social History [...] less (1 point) Points 3 Interpretation Negative Vital Signs Blood pressure systolic 154 mm Hg 03/04/19 25 Blood pressure diastolic 81 mm Hg 025 Heart Rate 85 /min 03/04/2024 Height 70.00 in 03/04/2024 Weight 323.0 lbs 03/04/2024 BMI 46.34 kg/m2 03/04/2024 Height-cm 177.80 cm 03/04/2024 Weight-kg 146.51 kg 03/04/2024 Encounters Encounter Location Date Provider Diagnosis [facility] [address] [address] 03/04/2024 Lupe Porras Major depressive disorder, recurrent, moderate F33.1 ; Generalized anxiety disorder F41.1 ; Panic attacks F41.0 ; Primary insomnia F51.01 and Obstructive sleep apnea (adult) (pediatric) G47.33 Assessments Encounter Date Diagnosis (ICD Code) Assessment Notes Treatment Notes Treatment Clinical Notes Section Notes 03/04/2024 Major depressive disorder, recurrent, moderate (ICD-10 - F33.1) refill on trintellix not needed at this time Major Depressive Disorder - Some improvement in mood after dose increase of Trintellix to 20 mg - Denies suicial thoughts presently Plan: - Continue Trintellix 20 mg daily - Continue Vraylar 3 mg daily - Continue therapy with Jeaneth Escoto at [place] Generalized Anxiety Disorder - Persistent anxiety and restlessness reported - Denies having panic attacks. Plan: - Start clonidine extended-release 0.1 mg once a day - Monitor for drowsiness, adjust dosing schedule if needed - Continue lorazepam as needed, encourage minimizing use Sleep Apnea - Regular use of CPAP machine reported - No concerns with sleep presently Plan: - Encourage continued compliance with CPAP use Hypertension - Currently on lisinopril 20 mg daily Plan: - Monitor blood pressure, adjust medication if needed Follow-up in one month to assess medication effectiveness, mood, anxiety, and overall well-being 03/04/2024 Generalized anxiety disorder (ICD-10 - F41.1) Major Depressive Disorder - Some improvement in mood after dose increase of Trintellix to 20 mg - Denies suicial thoughts presently Plan: - Continue Trintellix 20 mg daily - Continue Vraylar 3 mg daily - Continue therapy with Jeaneth Escoto at [place] Generalized Anxiety Disorder - Persistent anxiety and restlessness reported - Denies having panic attacks. Plan: - Start clonidine extended-release 0.1 mg once a day - Monitor for drowsiness, adjust dosing schedule if needed - Continue lorazepam as needed, encourage minimizing use Sleep Apnea - Regular use of CPAP machine reported - No concerns with sleep presently Plan: - Encourage continued compliance with CPAP use Hypertension - Currently on lisinopril 20 mg daily Plan: - Monitor blood pressure, adjust medication if needed Follow-up in one month to assess medication effectiveness, mood, anxiety, and overall well-being 03/04/2024 Panic attacks (ICD-10 - F41.0) Major Depressive Disorder - Some improvement in mood after dose increase of Trintellix to 20 mg - Denies suicial thoughts presently Plan: - Continue Trintellix 20 mg daily - Continue Vraylar 3 mg daily - Continue therapy with Jeaneth Escoto at [place] Generalized Anxiety Disorder - Persistent anxiety and restlessness reported - Denies having panic attacks. Plan: - Start clonidine extended-release 0.1 mg once a day - Monitor for drowsiness, adjust dosing schedule if needed - Continue lorazepam as needed, encourage minimizing use Sleep Apnea - Regular use of CPAP machine reported - No concerns with sleep presently Plan: - Encourage continued compliance with CPAP use Hypertension - Currently on lisinopril 20 mg daily Plan: - Monitor blood pressure, adjust medication if needed Follow-up in one month to assess medication effectiveness, mood, anxiety, and overall well-being 03/04/2024 Primary insomnia (ICD-10 - F51.01) Major Depressive Disorder - Some improvement in mood after dose increase of Trintellix to 20 mg - Denies suicial thoughts presently Plan: - Continue Trintellix 20 mg daily - Continue Vraylar 3 mg daily - Continue therapy with Jeaneth Escoto at [place] Generalized Anxiety Disorder - Persistent anxiety and restlessness reported - Denies having panic attacks. Plan: - Start clonidine extended-release 0.1 mg once a day - Monitor for drowsiness, adjust dosing schedule if needed - Continue lorazepam as needed, encourage minimizing use Sleep Apnea - Regular use of CPAP machine reported - No concerns with sleep presently Plan: - Encourage continued compliance with CPAP use Hypertension - Currently on lisinopril 20 mg daily Plan: - Monitor blood pressure, adjust medication if needed Follow-up in one month to assess medication effectiveness, mood, anxiety, and overall well-being 03/04/2024 Obstructive sleep apnea (adult) (pediatric) (ICD-10 - G47.33) Major Depressive Disorder - Some improvement in mood after dose increase of Trintellix to 20 mg - Denies suicial thoughts presently Plan: - Continue Trintellix 20 mg daily - Continue Vraylar 3 mg daily - Continue therapy with Jeaneth Escoto at [place] Generalized Anxiety Disorder - Persistent anxiety and restlessness reported - Denies having panic attacks. Plan: - Start clonidine extended-release 0.1 mg once a day - Monitor for drowsiness, adjust dosing schedule if needed - Continue lorazepam as needed, encourage minimizing use Sleep Apnea - Regular use of CPAP machine reported - No concerns with sleep presently Plan: - Encourage continued compliance with CPAP use Hypertension - Currently on lisinopril 20 mg daily Plan: - Monitor blood pressure, adjust medication if needed Follow-up in one month to assess medication effectiveness, mood, anxiety, and overall well-being 03/04/2024 Other Learning About Depression Screening material was printed Major Depressive Disorder - Some improvement in mood after dose increase of Trintellix to 20 mg - Denies suicial thoughts presently Plan: - Continue Trintellix 20 mg daily - Continue Vraylar 3 mg daily - Continue therapy with Jeaneth Escoto at [place] Generalized Anxiety Disorder - Persistent anxiety and restlessness reported - Denies having panic attacks. Plan: - Start clonidine extended-release 0.1 mg once a day - Monitor for drowsiness, adjust dosing schedule if needed - Continue lorazepam as needed, encourage minimizing use Sleep Apnea - Regular use of CPAP machine reported - No concerns with sleep presently Plan: - Encourage continued compliance with CPAP use Hypertension - Currently on lisinopril 20 mg daily Plan: - Monitor blood pressure, adjust medication if needed Follow-up in one month to assess medication effectiveness, mood, anxiety, and overall well-being Plan Of Treatment Medication Medication Name Sig Start Date Stop Date Notes cloNIDine HCl ER 0.1 MG 1 tablet Orally Once a day for 30 days 03/04/2024 LORazepam 1 MG 1/2 tablet Oral twice a day 03/04/2024 dc any existing orders from aryan Mahoney provider. thanks Vraylar 3 mg 1 capsule Oral daily for 30 days Trintellix 20 MG 1 tablet Oral Once a day Treatment Notes Assessment Notes Major depressive disorder, r ecurrent, moderate refill on trintellix not needed at this time Other Learning About Depre ssion Screening material was printed Next Appt Details Follow Up: 4 Weeks, Reason: Provider Name:Lupe brown, 06/23/2024 09:00:00 AM, [address], [facility] [address], [place], [address], Progress Notes * MELISSA BERMUDEZ ADOB: (33 yo M)Acc No.[id number]:03/04/2024 Patient: Nahid MELISSA LAUREN Provider: Dl Porras :1990 A ge:33 Y S ex:Male Date:03/04/2024 Address:[address] [place], [place] [id number] Pcp:Cyril RESENDIZ MD Subjective: * Chief Complaints: * F ollow-up for medication management * HPI: H istory of Presenting Problem: 33 y/o male, , no children, 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 Last visit increased trintellix to 20 mg daily for ongoing depressive symptoms and anxiety. Currently on trintellix 20 mg daily, vraylar 3 mg daily, and lorazepam 1 mg 1/2 tab bid prn. Reports improvement in mood since increasing Trintellix, but states it's not where I want it. Anxiety remains still pretty strong, maybe a little better. Experiences anxiety-induced depression, describing that anxiety gets me worked up and then I get depressed. No recent panic attacks reported. Endorses feeling restless internally, attributing it to anxiety. Does not feel it is related to his Vraylar. Sleep is described as probably too much, maybe due to the season, with anxiety present when going to bed but overall sleep is okay. Does ot take lorazepam every day. Recalls a previous medication that helped with physical anxiety symptoms but can't remember its name. Uses CPAP for sleep apnea. Appetite okay, eating alright. No suicidal thoughts reported. Attends therapy with Jeaneth Escoto at [place]. This note is transcribed using speech recognition software. It is a reflection of a visit with the patient. It might have some inaccuracy, including medication names and transcribing errors, though efforts have been made to correct them. P ast Psychiatric Medications: lithium- vomiting; propanolol-ineffective;buspirone- abdominal pain; depakote, latuda, sertraline, zoloft, effexor, wellbutrin, seroquel, lexapro- helpful first few months then stopped being effective. D epression Screening: OSCAR-7 (2018 Edition) F eeling nervous, anxious, or on edge?More than half the days, N ot being able to stop or control worrying M ore than half the days, W orrying too much about different things M ore than hafl the days, T rouble relaxing N early every day, B eing so restless that it is hard to sit still N early every day, B ecoming easily annoyed or irritable S everal days, F eeling afraid as if something awful might happen M ore than half the days, T otal OSCAR-7 Score 1 5, I nterpretation of Total ( 15 and over) Severe. C [place]-Suicide Severity Rating Scale: Suicide Risk (CSRS-screener) i n the past one month Have you wished you were or wished you could go to sleep and not wake up? N o, i n the past one month Have you actually had any thoughts of killing yourself? N o, H ave you ever done anything, started to do anything, or prepared to do anything to end your life? N o. D epression screening: PHQ-9 L ittle interest or pleasure in doing things M ore than half the days, F eeling down, depressed, or hopeless S everal days, T rouble falling or staying asleep, or sleeping too much M ore than half the days, F eeling tired or having little energy M ore than half the days, P oor appetite or overeating S everal days,?Feeling bad about yourself or that you are a failure, or have let yourself or your family down Several days, T rouble concentrating on things, such as reading the newspaper or watching television M ore than half the days, M oving or speaking so slowly that other people could have noticed; or the opposite, being so fidgety or restless that you have been moving around a lot more than usual M ore than half the days, T houghts that you would be better off or of hurting yourself in some way N ot at all, T otal Score 1 3, I nterpretation M oderate Depression. I ntervention D epression Screening Findings P ositve, F ollow-Up for Depression M ental health treatment assessment, Patient follow-up to return when and if necessary, S uicide Risk Assessment Performed 0 03/04/2024 , A dditional Evaluation for Depression P sychiatric interview and evaluation, N idris of the standardized tool used for adult depression screening: P atient Health Questionnaire (PHQ-9). P ast Psychiatric Hospitalizations: Previous psychiatric hospitalizations P revious Psychiatric Hospitalization N o. P ast History of Suicidal attempt H ave you ever attempted suicide in the past N o. * ROS: G eneral / Constitutional: Patient denies f atigue, headache, l ightheadedness.? C ardiovascular: Patient denies c hest pain, dizziness, palpitations. ? G astrointestinal: Patient denies n ausea, vomiting, change in bowel habits.? N eurologic: Patient denies c onfusion, tic, tremor. P sychiatric: Patient denies s uicidal thoughts, auditory / visual hallucinations, delusions, psychosis, involuntary movements. S ee HPISee HPIPatient not eligible due to active diagnosis of hypertension: Aurelia [id number]. * Medical History: * Surgical History: O ther 3 hip surgeries Tonsilectomy/adenoids * Hospitalization/Major Diagno stic Procedure: d enied psych hospitalization hx * Family History: F ather: None. M aternal Aunt: None. M aternal Uncle: None. P aternal Aunt: None.?Paternal Uncle: None. M other: Bipolar Disorder. P aternal Grandfather: None. P aternal Grandmother: None. M aternal Grandfather: None. M aternal Grandmother: None. B rother: None. S ister: Anxiety Disorder,Major Depressive Episode,Bipolar Disorder. S on: None.?Daughter: None. * Social History: T obacco Use: T obacco Control (Standard) T obacco use: U ses tobacco in other forms, H ow long has it been since you last smoked? 1 -5 years. D rug/Alcohol: D rugs H ave you used drugs other than those for medical reasons in the past 12 months??No. A KENDALL-C (Standard) D id you have a drink containing alcohol in the past year? Y es, H ow often did you have six or more drinks on one occasion in the past year? N ever (0 point), H ow many drinks did you have on a typical day when you were drinking in the past year? 3 or 4 drinks (1 point), H ow often did you have a drink containing alcohol in the past year? M onthly or less (1 point), P oints 3 , I nterpretation N egative. M iscellaneous: S afety issues A re there any firearms in the house? Y es. A dvance Care Planning?Do you have Power of Salon Professional for Health or Medical? N o, A re you your own decision-maker Y es. S ocial History: H ousehold M arital Status: M arried, N umber of Adults in household: 2 , N umber of Children in Household: 0 , L evel of Education: [employer]. * Medications: T akingLisinopril 20 MG Tablet Oral Vraylar 3 mg Capsule 1 capsule Oral daily , Notes to Pharmacist: dc any existing orders from aryan Mahoney provider. thanksTrintellix 20 MG Tablet 1 tablet Oral Once a day , Notes to Pharmacist: dc any existing orders from aryan Mahoney provider. thanksLORazepam 1 MG Tablet 1/2 tablet Oral twice a day As needed, Notes to Pharmacist: dc any existing orders from aryan Mahoney provider. thanksMedication List reviewed and reconciled with the patientTaking Lisinopril 20 MG Tablet Oral Taking Vraylar 3 mg Capsule 1 capsule Oral daily , Notes to Pharmacist: dc any existing orders from aryan Mahoney provider. thanksTaking Trintellix 20 MG Tablet 1 tablet Oral Once a day , Notes to Pharmacist: dc any existing orders from aryan Mahoney provider. thanksTaking LORazepam 1 MG Tablet 1/2 tablet Oral twice a day As needed, Notes to Pharmacist: dc any existing orders from aryan Mahoney provider. thanksMedication List reviewed and reconciled with the patient * Allergies: B uspirone: Allergy - Onset Date 07/16/2023no[Allergies Verified] Objective: * Vitals: B P:154/81mm Hg, HR:85/min, Wt:323.0lbs, Wt-k.51 kg, Ht: 70.00 in, Ht-cm: 177.80 cm, BMI:46.34Index, Body Surface Area: 2.69. * Examination: P sychiatry: Appearance: a lert, groomed, a ppears well rested. In no acute distress. Abnormal body movements: f idgety. Affect / mood: a nxious. Attention: n ormal in conversation. Attitude: c ooperative, open-minded with collaborative approach. Homicidal ideation: n one. Suicidal ideation: n [...] anxiety disorder - F41.1 (Primary) 2 . M ajor depressive disorder, recurrent, moderate - F33.1 3 . P anic attacks - F41.0 4 . P rimary insomnia - F51.01 5 . O bstructive sleep apnea (adult) (pediatric) - G47.33 Major Depressive Disorder - Some improvement in mood after dose increase of Trintellix to 20 mg - Denies suicial thoughts presently Plan: - Continue Trintellix 20 mg daily - Continue Vraylar 3 mg daily - C ontinue therapy with Jeaneth Escoto at [place] Generalized Anxiety Disorder - Persistent anxiety and restlessness reported - Denies having panic attacks. Plan: - Start clonidine extended-release 0.1 mg once a day - Monitor for drowsiness, adjust dosing schedule if needed - C ontinue lorazepam as needed, encourage minimizing use Sleep Apnea - Regular use of CPAP machine reported - No concerns with sleep presently Plan: - Encourage continued compliance with CPAP use Hypertension - Currently on lisinopril 20 mg daily Plan: - Monitor blood pressure, adjust medication if needed Follow-up in one month to assess medication effectiveness, mood, anxiety, and overall well-being Plan: * Treatment: 2. M ajor depressive disorder, recurrent, moderate Continue Trintellix Tablet, 20 MG, 1 tablet, Oral, Once a day; R efill Vraylar Capsule, 3 mg, 1 capsule, Oral, daily, 30 days, 30 Capsule, Refills 1. Notes: refill on trintellix not needed at this time 3. P anic attacks Refill LORazepam Tablet, 1 MG, 1/2 tablet, Oral, twice a day As needed, 10, Refills 0, Notes to Pharmacist: dc any existing orders from aryan Mahoney provider. thanks. 4. O thers Notes: Learning About Depression Screening material was printed * Labs: * L ab: UDT (Collection Date & Time - 03/04/2024) Value Reference Range T HC N 0 - 50 ng/ml * C ocaine N 0 - 300 ng/ml * A mphetamine N 0 - 1000 ng/ml * B uprenorphine (BUP) N 0 - 10 ng/ml * S ecobarbital (Bar) N 0 - 300 ng/ml * O xazepam (BZO) N 0 - 300 ng/ml * 2 -ethylidene-1,6-xhywkojr-2,3-diphenylpyrrolidine (EDDP) N 0 - 300 ng/ml * M ethamphetamine (MET) N 0 - 1000 ng/ml * M ethylenedioxymethamphetamine (MDMA) N 0 - 500 ng/ml * M orphine (MOP 300/[id number]) N 0 - 300 ng/ml * M ethadone (MTD) N 0 - 300 ng/ml * P hencyclidine (PCP) N 0 - 25 ng/ml * P ropoxyphene (PPX) N 0 - 300 ng/ml * N ortriptyline (TCA) N 0 - 1000 ng/ml * O xycodone N 0 - 300 ng/ml * Procedure Codes: 9 6127 BEHAV ASSMT W/SCORE & DOCD/STAND [id number] VISIT COMPLEXITY INHERENT TO ONGOING CARE RELATED TO A PATIENT'S SINGLE, SERIOUS CONDITION OR A COMPLEX [id number] Pt not yoselyn d/t act dig [id number] DRUG TST PRSMV READ INSTRMNT ASSTD DIR OPT OBS * Preventive Medicine: Counseling: P atient Education: G eneral Education A ssessment and plan reviewed with patient.Educated on diagnoses and recommended treatment options.Educated on risks/benefits of medications, including reason for medications and potential side effects.Alternatives and expected course without treatment reviewed.Education given regarding compliance with medication and expectations regarding adherence to or inconsistent usage of medication.Educated that it can take weeks to see full therapeutic benefits of psychotropic medications and encouraged to trust the process.Educated on good sleep hygiene and importance of adequate sleep on both mental and overall health and well-being.Patient asked appropriate questions, verbalized understanding, and agreed to the recommended treatment and to continue to be followed.Encouraged to reach out if problems, questions, or concerns arise.Educated on suicide hotlines, resources, and safety should suicidal thoughts occur.. * Follow Up: 4 Weeks * Billing Information: * Visit Code: 90496 OFFICE OUTPATIENT VISIT 25 MINUTES DETAILED HISTORY AND EXAM/MODERATE MEDICAL DECISION MAKING. * Procedure Codes: 99477 BEHAV ASSMT W/SCORE & DOCD/STAND INSTRUMENT. G2211 VISIT COMPLEXITY INHERENT TO ONGOING CARE RELATED TO A PATIENT'S SINGLE, SERIOUS CONDITION OR A COMPLEX CONDITION. G9744 Pt [place] y[place] d/[place]. [address] DRUG TST PRSMV READ INSTRMNT ASSTD DIR OPT OBS. * CAL IMAGING DIRECTOR Electronically co-signed by Erwin Allen MD on 03/04/2024 at 08:28 PM MEDICAL IMAGING DIRECTOR Sign off status: Completed true * Provider: Dl Porras Date: 03/04/2024 Generated for Philippe watkins/Saroj/Luzransmitting on: 0 05/26/2024 02:19 PM CDT History and Physical Notes * HPI (History of Present Illness) Category Sub-Category Detail Notes Category Not es Past Psychiatric Hospitalizations Previous psychiatric hospitalizations Previous Psychiatric Hospitalization: No Past History of Suicidal attempt Have yo u ever attempted suicide in the past: No Depression screening PHQ-9 Little inte rest or pleasure in doing things: More than half the days Feeling down, depressed, or hopeless: Se veral days Trouble falling or staying a sleep, or sleeping too much: More than half the days Feeling tired or having little energy: M ore than half the days Poor appetite or overeating: Several day s [...] moving around a lot more than usual: More than half the days Thoughts that you would be b rosi off or of hurting yourself in some way: Not at all Total Score: 13 Interpretation: Moderate Depression Intervention Depression Screening Findings: P ositve Follow-Up for Depression: [facility] treatment assessment, Patient follow-up to return when and if necessary Suicide Risk Assessment Performed: 03/04 Additional Evaluation for De pression: Psychiatric interview and evaluation Name of the standardized too l used for adult depression screening:: Patient Health Questionnaire (PHQ-9) Depression Screening OSCAR-7 (2018 Edition) Feelin g nervous, anxious, or on edge: More than half the days Not being able to stop or control worryi ng: More than half the days Worrying too much about different things : More than hafl the days Trouble relaxing: Nearly every day Being so restless that it is hard to sit still: Nearly every day Becoming easily annoyed or irritable: Se veral days Feeling afraid as if something awful lupe ht happen: More than half the days Total OSCAR-7 Score: 15 Interpretation of Total: (15 and over) S srinivas [place]-Suicide Severity Rating Scale Suicide Risk (CSRS-screener) in [...] Detail Notes Category Not es Psychiatry Appearance: alert, groomed, appears well rested. In no acute distress Attitude: cooperative, open-mi nded with collaborative approach Psychomotor activity: within normal rang e Abnormal body movements: fidgety Attention: normal in conversati on Degree of [...]
--- OUTSIDE RECORDS SUMMARY | 2024-05-26 14:20 | XMS_ITS ---
Author Organization [facility] Address [address] [facility] [address] [place] [address] Care Team Providers Care Clinical Documentation Improvement Specialist Name Role Phone Cyril RESENDIZ MD Primary Care Provider Unavailab Lupe Canales Unavailable [phone] Allergies Allergen (clinical drug ingredient) Drug/Non Drug Allergy documented on EMR Reaction Allergy Type Onset Date Status buspirone Buspirone Unknown Drug Allergy 07/16/2023 Active REASON FOR VISIT Follow-up for medication management Medications Medication SIG (Take, Route, Frequency, Duration) Notes Start Date End Date Status Lisinopril 20 MG Oral 07/16/2023 Ac tive Trintellix 20 MG 1 tablet Oral Once a day for 30 days Active Vraylar 3 mg 1 capsule Oral daily for 30 days Active cloNIDine HCl ER 0.1 MG 1 tablet Orally Once a day for 30 days Active LORazepam 1 MG 1/2 tablet Oral twice a day As needed dc any existing orders from aryan Mahoney provider. thanks 03/31/2024 Active Social History Tobacco Use: Social History [...] Interpretation Negative Vital Signs Blood pressure systolic 127 mm Hg 03/31/19 25 Blood pressure diastolic 79 mm Hg 025 Heart Rate 86 /min 03/31/2024 Height 70.00 in 03/31/2024 Weight 320 lbs 03/31/2024 BMI 45.91 kg/m2 03/31/2024 Height-cm 177.80 cm 03/31/2024 Weight-kg 145.15 kg 03/31/2024 Encounters Encounter Location Date Provider Diagnosis [facility] [employer] [address] [place] [address] 03/31/2024 Lupe Porras Major depressive disorder, recurrent, moderate F33.1 ; Generalized anxiety disorder F41.1 ; Panic attacks F41.0 ; Primary insomnia F51.01 and Obstructive sleep apnea (adult) (pediatric) G47.33 Assessments Encounter Date Diagnosis (ICD Code) Assessment Notes Treatment Notes Treatment Clinical Notes Section Notes 03/31/2024 Major depressive disorder, recurrent, moderate (ICD-10 - F33.1) Anxiety - Improvement since starting clonidine - Continues to experience work-related stress - Decreased lorazepam usage, mainly used on workdays Plan: - Continue clonidine as prescribed - Encourage continued therapy for stress management - Monitor lorazepam usage and work towards minimizing its use Depression - Mood overall stable Plan: - Continue Trintellix 20 mg and Vraylar 3 mg as prescribed - Assess mood and response to medications at follow-up visits Sleep apnea - Uses C-PAP for sleep apnea Plan: - Encourage continued use of C-PAP as prescribed - Monitor sleep quality and address issues at follow-up visits Hypertension - Currently on lisinopril 20 mg daily Plan: - Monitor blood pressure, adjust medication if needed Follow-up in 2 months to assess progress and adjust treatment plan as needed 03/31/2024 Generalized anxiety disorder (ICD-10 - F41.1) Anxiety - Improvement since starting clonidine - Continues to experience work-related stress - Decreased lorazepam usage, mainly used on workdays Plan: - Continue clonidine as prescribed - Encourage continued therapy for stress management - Monitor lorazepam usage and work towards minimizing its use Depression - Mood overall stable Plan: - Continue Trintellix 20 mg and Vraylar 3 mg as prescribed - Assess mood and response to medications at follow-up visits Sleep apnea - Uses C-PAP for sleep apnea Plan: - Encourage continued use of C-PAP as prescribed - Monitor sleep quality and address issues at follow-up visits Hypertension - Currently on lisinopril 20 mg daily Plan: - Monitor blood pressure, adjust medication if needed Follow-up in 2 months to assess progress and adjust treatment plan as needed 03/31/2024 Panic attacks (ICD-10 - F41.0) Anxiety - Improvement since starting clonidine - Continues to experience work-related stress - Decreased lorazepam usage, mainly used on workdays Plan: - Continue clonidine as prescribed - Encourage continued therapy for stress management - Monitor lorazepam usage and work towards minimizing its use Depression - Mood overall stable Plan: - Continue Trintellix 20 mg and Vraylar 3 mg as prescribed - Assess mood and response to medications at follow-up visits Sleep apnea - Uses C-PAP for sleep apnea Plan: - Encourage continued use of C-PAP as prescribed - Monitor sleep quality and address issues at follow-up visits Hypertension - Currently on lisinopril 20 mg daily Plan: - Monitor blood pressure, adjust medication if needed Follow-up in 2 months to assess progress and adjust treatment plan as needed 03/31/2024 Primary insomnia (ICD-10 - F51.01) Anxiety - Improvement since starting clonidine - Continues to experience work-related stress - Decreased lorazepam usage, mainly used on workdays Plan: - Continue clonidine as prescribed - Encourage continued therapy for stress management - Monitor lorazepam usage and work towards minimizing its use Depression - Mood overall stable Plan: - Continue Trintellix 20 mg and Vraylar 3 mg as prescribed - Assess mood and response to medications at follow-up visits Sleep apnea - Uses C-PAP for sleep apnea Plan: - Encourage continued use of C-PAP as prescribed - Monitor sleep quality and address issues at follow-up visits Hypertension - Currently on lisinopril 20 mg daily Plan: - Monitor blood pressure, adjust medication if needed Follow-up in 2 months to assess progress and adjust treatment plan as needed 03/31/2024 Obstructive sleep apnea (adult) (pediatric) (ICD-10 - G47.33) Anxiety - Improvement since starting clonidine - Continues to experience work-related stress - Decreased lorazepam usage, mainly used on workdays Plan: - Continue clonidine as prescribed - Encourage continued therapy for stress management - Monitor lorazepam usage and work towards minimizing its use Depression - Mood overall stable Plan: - Continue Trintellix 20 mg and Vraylar 3 mg as prescribed - Assess mood and response to medications at follow-up visits Sleep apnea - Uses C-PAP for sleep apnea Plan: - Encourage continued use of C-PAP as prescribed - Monitor sleep quality and address issues at follow-up visits Hypertension - Currently on lisinopril 20 mg daily Plan: - Monitor blood pressure, adjust medication if needed Follow-up in 2 months to assess progress and adjust treatment plan as needed Plan Of Treatment Medication Medication Name Sig Start Date Stop Date Notes Trintellix 20 MG 1 tablet Oral Once a day for 30 days Vraylar 3 mg 1 capsule Oral daily for 30 days cloNIDine HCl ER 0.1 MG 1 tablet Orally Once a day for 30 days LORazepam 1 MG 1/2 tablet Oral twice a day 03/31/2024 dc any existing orders from aryan Mahoney provider. thanks Next Appt Details Follow Up: 2 Months, Reason: Provider Name:Lupe brown, 06/23/2024 09:00:00 AM, [address] [facility] [address], [facility] [address], [address], Progress Notes * MELISSA BERMUDEZ ADOB: (33 yo M)Acc No.[id number]:03/31/2024 Patient: MELISSA MIGUEL Provider: Dl Porras :1990 A ge:33 Y S ex:Male Date:03/31/2024 Address:[facility] [address] [place], [place] [id number] Pcp:Cyril RESENDIZ MD Subjective: * Chief Complaints: * F ollow-up for medication management * HPI: D epression Screening: OSCAR-7 (2018 Edition) F eeling nervous, anxious, or on edge?More than half the days, N ot being able to stop or control worrying M ore than half the days, W orrying too much about different things S everal days, T rouble relaxing S everal days, B eing so restless that it is hard to sit still S everal days, B ecoming easily annoyed or irritable S everal days, F eeling afraid as if something awful might happen Several days, T otal OSCAR-7 Score 9 , I nterpretation of Total ( 5 to 9) Mild.? C [place]-Suicide Severity Rating Scale: Suicide Risk [...] ittle interest or pleasure in doing things S everal days, F eeling down, depressed, or hopeless S everal days, T rouble falling or staying asleep, or sleeping too much M ore than half the days, F eeling tired or having little energy M ore than half the days, P oor appetite or overeating N ot at all, F eeling bad about yourself or that you are a failure, or have let yourself or your family down N ot at all, T rouble concentrating on things, such as reading the newspaper or watching television S everal days, M oving or speaking so slowly that other people could have noticed; or the opposite, being so fidgety or restless that you have been moving around a lot more than usual M ore than half the days, T houghts that you would be better off or of hurting yourself in some way Not at all, T otal Score 9 , I nterpretation M ild Depression. I ntervention?Depression Screening Findings P ositve, F ollow-Up for Depression M ental health treatment assessment, Patient follow-up to return when and if necessary, S uicide Risk Assessment Performed 0 03/31/2024, A dditional Evaluation for Depression P sychiatric interview and evaluation, N idris of the standardized tool used for adult depression screening: P atient Health Questionnaire (PHQ-9). H istory of Presenting Problem: This note is transcribed using speech recognition software. It is a reflection of a visit with the patient. It might have some inaccuracy, including medication names and transcribing errors, though efforts have been made to correct them. 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 Last visit started clonidine for lingering anxiety with much physical manifestations. Also on trintellix 20 mg daily and vraylar 3 mg daily. lorazepam prn Reports anxiety has improved with use of clonidine. States mood has been okay and anxiety is more controlled now. 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 Sleep and appetite are normal. Notes persistent fatigue, but states it is unchanged from baseline. Lorazepam usage has decreased slightly. Primarily using it on workdays and managed to go two days without taking it this week. Expresses desire to change jobs due to work-related stress but feels constrained by current high salary. Continues to use CPAP for sleep apnea. Reports vaping nicotine and consuming caffeine in form of coffee and a double-shot espresso on workdays, noting improvement from previous habit of drinking a Monster energy drink daily. Attends therapy with Jeaneth Escoto at [facility]. P ast Psychiatric Medications: lithium- vomiting; propanolol-ineffective;buspirone- [...] visual hallucinations, delusions, psychosis, involuntary movements. P atient not eligible due to active diagnosis of hypertension: G 9744See HPI. * Medical History: * Surgical History: O [...] dvance Care Planning?Do you have Power of Relay Motorman for Health or Medical? N o, A re you your own decision-maker Y es. S ocial History: H ousehold M arital Status: M arried, N umber of Adults in household: 2 , N umber of Children in Household: 0 , L evel of Education: [employer]. * Medications: T akingLisinopril 20 MG Tablet Oral Trintellix 20 MG Tablet 1 tablet Oral Once a day Vraylar 3 mg Capsule 1 capsule Oral daily LORazepam 1 MG Tablet 1/2 tablet Oral twice a day As needed, Notes to Pharmacist: casimiro any existing orders from aryan Mahoney provider. thankscloNIDine HCl ER 0.1 MG Tablet Extended Release 12 Hour 1 tablet Orally Once a day if taken in the AM not on a day you work at first, if too sedating take at bedtimeMedication List reviewed and reconciled with the patientTaking Lisinopril 20 MG Tablet Oral Taking Trintellix 20 MG Tablet 1 tablet Oral Once a day Taking Vraylar 3 mg Capsule 1 capsule Oral daily Taking LORazepam 1 MG Tablet 1/2 tablet Oral twice a day As needed, Notes to Pharmacist: casimiro any existing orders from aryan Mahoney provider. thanksTaking cloNIDine HCl ER 0.1 MG Tablet Extended Release 12 Hour 1 tablet Orally Once a day if taken in the AM not on a day you work at first, if too sedating take at bedtimeMedication List reviewed and reconciled with the patient * Allergies: B uspirone: Allergy - Onset Date 07/16/2023no[Allergies Verified] Objective: * Vitals: B P:127/79mm Hg, HR:86/min, Wt:320lbs, Wt-k.15 kg, Ht: 70.00 in, Ht-cm: 177.80 cm, BMI:45.91Index, Body Surface Area: 2.67. * Examination: P sychiatry: Appearance: a lert, groomed, a ppears well rested. In no acute distress. Abnormal body movements: n one noted. Affect / mood: f ull range, appropriate. Attention: n ormal in conversation. Attitude: c [...] bstructive sleep apnea (adult) (pediatric) - G47.33 Anxiety - Improvement since starting clonidine - Continues to experience work-related stress - Decreased lorazepam usage, mainly used on workdays Plan: - Continue clonidine as prescribed - Encourage continued therapy for stress management - Monitor lorazepam usage and work towards minimizing its use Depression - Mood overall stable Plan: - Continue Trintellix 20 mg and Vraylar 3 mg as prescribed - Assess mood and response to medications at follow-up visits Sleep apnea - Uses C-PAP for sleep apnea Plan: - Encourage continued use of C-PAP as prescribed - Monitor sleep quality and address issues at follow-up visits Hypertension - Currently on lisinopril 20 mg daily Plan: - Monitor blood pressure, adjust medication if needed Follow-up in 2 months to assess progress and adjust treatment plan as needed Plan: * Treatment: 2. M ajor depressive disorder, recurrent, moderate Refill Vraylar Capsule, 3 mg, 1 capsule, Oral, daily, 30 days, 30 Capsule, Refills 1; R efill Trintellix Tablet, 20 MG, 1 tablet, Oral, Once a day, 30 days, 30, Refills 1. 3. P anic attacks Refill LORazepam Tablet, 1 MG, 1/2 tablet, Oral, twice a day As needed, 10, Refills 0, Notes to Pharmacist: dc any existing orders from aryan Mahoney provider. thanks. * Procedure Codes: 9 6127 BEHAV ASSMT W/SCORE & DOCD/STAND [id number] Pt not yoselyn d/t act dig [id number] VISIT COMPLEXITY INHERENT TO ONGOING CARE RELATED TO A PATIENT'S SINGLE, SERIOUS CONDITION OR A COMPLEX CONDITION * Preventive Medicine: Counseling: P atient Education: [...] should suicidal thoughts occur.. * Follow Up: 2 Months * Billing Information: * Visit Code: 78798 OFFICE OUTPATIENT VISIT 25 MINUTES DETAILED HISTORY AND EXAM/MODERATE MEDICAL DECISION MAKING. Modifiers: SA * Procedure Codes: 42478 BEHAV ASSMT W/SCORE & DOCD/STAND INSTRUMENT. G9744 Pt not yoselyn d/t act dig htn. G2211 VISIT COMPLEXITY INHERENT TO ONGOING CARE RELATED TO A PATIENT'S SINGLE, SERIOUS CONDITION OR A COMPLEX CONDITION. * SUPERVISOR Electronically co-signed by Erwin Allen MD on 04/08/2024 at 08:53 PM PST SUPERVISOR Sign off status: Completed Addendum: * true * Provider: Dl Porras Date: 0 03/31/2024 Generated for Philippe watkins/Saroj/Cisco on: 0 05/26/2024 02:19 PM CDT History [...] half the days Poor appetite or overeating: Not at all Feeling bad about yourself o r that you are a failure, or have let yourself or your family down: Not at all Trouble concentrating on thi ngs, such as reading the newspaper or watching television: Several days Moving or speaking so slowly that other people could have noticed; or the opposite, being so fidgety or restless that you have been moving around a lot more than usual: More than half the days Thoughts that you would be b rosi off or of hurting yourself in some way: Not at all Total Score: 9 Interpretation: Mild Depression Intervention Depression Screening Findings: P ositve Follow-Up for Depression: [facility] treatment assessment, Patient follow-up to return when and if necessary Suicide Risk Assessment Performed: 03/31 Additional Evaluation for Depression: Ps ychiatric interview and evaluation Name of the standardized too l used for adult depression screening:: Patient Health Questionnaire (PHQ-9) Depression Screening OSCAR-7 (2018 Edition) Feelin g nervous, anxious, or on edge: More than half the days Not being able to stop or control worryi ng: More than half the days Worrying too much about different things : Several days Trouble relaxing: Several days Being so restless that it is hard to sit still: Several days Becoming easily annoyed or irritable: Se veral days Feeling afraid as if something awful lupe ht happen: Several days Total OSCAR-7 Score: 9 Interpretation of Total: (5 to 9) Mild [place]-Suicide Severity Rating Scale Suicide Risk (CSRS-screener) in [...] within normal rang e Abnormal body movements: none noted Attention: normal in conversati on Degree of awareness of surroundings: wit hin normal limits Orientation: awake, alert and alfredo ented x 3 Affect / mood: full range, appropri ate Speech / language: clear and coherent, appropriate pitch/modulation, normal rate, volume, and articulation (RVR), proper grammar used Insight: good Judgement: good Thought process: intact Thought content: appropriate Suicidal ideation: none Homicidal ideation: none Intellectual functioning: no impairment noted Memory status: no impairment noted Delusions: no Hallucinations: no
[2024-05-26 17:46] LABS: Semen Viscosity Not Increased (Not Increa.)
[2024-05-26 17:47] LABS: Liquefaction Semen Complete in 30 min. (<30 minutes); Semen Color Opaque (Grey-opaque); Semen Immotility 20 %; Semen Morphology Result to Follow; Semen Non-Progressive Motility 10 %; Semen Progressive Motility 70 % (>32); Semen Total Motility 80 (>40% (PM+NP)); Sperm Count 126.9 Mil/mL (60-150 million/mL); pH Semen 8.5 (7.2-8.0)
== END 2024-05-26 13:06 | disposition home or self-care (01) ==
LOC: CHSLAB 13:08
PROVIDERS: PCP Family Medicine; Visit Provider Physician Assistant
DX: R79.89 Other specified abnormal findings of blood chemistry (principal)
CPT/HCPCS: 82757; 88160; 89320